=== PATIENT | female | born 1955 | race Hispanic/Latino ===

== ENCOUNTER 2023-04-04 15:11 | Emergency (ER) | payer MEDICARE ==
--- OUTSIDE RECORDS SUMMARY | 2023-04-04 15:14 | XMS REPORT | Continuity of Care Document ---
:1955 Author Organization [facility] t Address [address] [place] [id number] Care Team Providers Name Role Phone Benedict Young Primary Care Physician Herman Tanner Attending Clinician [id number]_[place]_S Attending Clinician Unavailable Doctor Unassigned, [place] Attending Clinician Unavailable MICHAEL POTTER Attending Clinician Unavailable Michael Spencer Attending Clinician Melvi Camilo DO Attending Clinician GC_GCBZW_[place]_S Admitting Clinician Unavailable MICHAEL POTTER Admitting Clinician Unavailable Payers Payer Name Policy Type Policy Number Effective Date Expiration Date [facility] [id number] 2021 (MEDICARE 00:00:00 REPLACEMENT HMO) Problems Condition Condition Condition Status Onset Resolution Last Treating Co mments Source Name Details Category Date Date Treatment Clinician Date No known No known Disease Unive rs active active ity of problems problems [facility] Allergies, Adverse Reactions, Alerts Allergy Allergy Status Severity Reaction(s) Onset Inactive Treating Comm ents Source Name Type Date Date Clinician Tramadol Propensi Active Other - See Unable t o Univers ty to comments 4-11 sleep ity of adverse 00:00: [place] reaction 00 Medical s Branch TRAMADOL DRUG Active Other-Cmnt Univ ers INGREDI 4-11 ity of 00:00: [place] 00 Medical Branch Social History Social Habit Start Date Stop Date Quantity Comments Source Sexual orientation Univer [facility] Exposure to 2022-04-28 2022-05-08 Not sure [facility] SARS-CoV-2 (event) 00:00:00 16:15:00 [facility] Branch Sex Assigned At [birth year] [facility] 00:00:00 00:00:00 Medical Branch Smoking Status Start Date Stop Date Source [facility] Medications Ordered Filled Start Stop Current Ordering Indication Dosage Frequency Signature Comments Components Source Medication Medication Date Date Medication? Clinician (SIG) Name Name iopamidol 2021-06- No [id number] 75mL 75 mL, U nivers (ISOVUE 07-09 Intravenou ity o f 370-500 mL) 01:45: 01:45 s, ONCE, 1 [place] injection 00 :00 dose, On Medica l 75 mL Fri Branch 05/08/22 at 1945, Routine morpHINE (4 2021-06- No 4mg 4 mg, Slow Univers mg/mL) 07-09 IV Push, ity of injection 4 00:15: 00:13 [place]CE[place] 1 [place] mg 00 :[place] dose, On Medical [facility] Branch 05/08/22 at 1815, STAT ondansetron 2021-06- No 4mg 4 mg, Slow Univers (ZOFRAN 07-08 IV Push, ity of (PF)) 23:30: 00:13 ONCE, 1 [place] injection 4 00 :00 dose, On Medi dwight mg [facility] Branch 05/08/22 at 1730, LINDSAY cloNIDine 2021-06- No .1mg 0.1 mg, Univ ers (CATAPRES) 07-08 Oral, ity of tablet 0.1 22:45: 22:34 ONCE, 1 [place] as mg 00 :00 dose, On Medical Fri Branch 05/08/22 at 1645, STAT diazePAM 2021-06- No 5mg 5 mg, Univers (VALIUM) 07-08 Oral, ity of tablet 5 mg 22:30: 22:34 [place]CE[place] 1 [place] 00 :[place] dose, On Medical Fri Branch 11/25/22 at 1630, LINDSAY methocarbam 2021-06 Yes [id number] 1000mg Take 2 Univers oL 500 mg 1-25 tablets by ity of tablet 00:00: mouth 4 [place] 00 (four) Medical times Branch daily as needed for Pain (scale 4-6). naproxen 2021-06 Yes [id number] 500mg Take 1 Un eran (NAPROSYN) 1-25 tablet by ity of 500 mg 00:00: mouth in [place] tablet 00 the Medical morning Branch and 1 tablet in the evening. Take with meals. acetaminoph 2021-06 Yes [id number] 1{tbl} Take 1 Un eran en-codeine 1-25 tablet by ity of 300-30 mg 00:00: mouth [place] tablet 00 every 4 Medical (four) Branch hours as needed for Pain (scale 7-10). Indication s: acute pain methocarbam 2021-06 Yes [id number] 1000mg Take 2 Univers oL 500 mg 1-25 tablets by ity of tablet 00:00: mouth 4 [place] 00 (four) Medical times Branch daily as needed for Pain (scale 4-6). naproxen 2021-06 Yes [id number] 500mg Take 1 Un eran (NAPROSYN) 1-25 tablet by ity of 500 mg 00:00: mouth in [place] tablet 00 the Medical morning Branch and 1 tablet in the evening. Take with meals. acetaminoph 2021-06 Yes [id number] 1{tbl} Take 1 Un eran en-codeine 1-25 tablet by ity of 300-30 mg 00:00: mouth [place] tablet 00 every 4 Medical (four) Branch hours as needed for Pain (scale 7-10). Indication s: acute pain methocarbam 2021-06 Yes [id number] 1000mg Take 2 Univers oL 500 mg 1-25 tablets by ity of tablet 00:00: mouth 4 [place] 00 (four) Medical times Branch daily as needed for Pain (scale 4-6). naproxen 2021-06 Yes [id number] 500mg Take 1 Un eran (NAPROSYN) 1-25 tablet by ity of 500 mg 00:00: mouth in [place] tablet 00 the Medical morning Branch and 1 tablet in the evening. Take with meals. acetaminoph 2021-06 Yes [id number] 1{tbl} Take 1 Un eran en-codeine 1-25 tablet by ity of 300-30 mg 00:00: mouth [place] tablet 00 every 4 Medical (four) Branch hours as needed for Pain (scale 7-10). Indication s: acute pain losartan 2020-06 Yes 25mg 25 mg, Univers (COZAAR) 08-10 Oral, ity of tablet 25 15:00: DAILY, [place] mg 00 First dose Medical on Mon Branch 06/09/21 at 0900, Until Discontinu ed, Routine diazePAM 2020-06- No 5mg 5 mg, Slow Un eran (VALIUM) 08-10 IV Push, ity of injection 5 00:45: 23:46 ONCE, 1 [place] mg 00 :00 dose, On Medical [place] Branch 06/08/21 at 1845, STAT NaCl 0.9% 2020-06- No 500mL at 999 Univ ers (NS) bolus 08-09 mL/hr, 500 it y of infusion 22:45: 22:30 mL, IV [place] 500 mL 00 :00 Infusion, Medical ONCE, 1 Branch dose, On [place] 06/08/21 at 1645, STAT meclizine 2020-06- No 25mg 25 mg, Unive rs (TRAVEL-EAS 08-09 Oral, ity of E 22:45: 21:54 ONCE, 1 [place] (MECLIZINE) 00 :00 dose, On Medi dwight ) tablet 25 [place] Branch mg 06/08/21 at 1645, LINDSAY ondansetron 2020-06- No 4mg 4 mg, Slow Univers (ZOFRAN 08-09 IV Push, ity of (PF)) 22:45: 21:53 ONCE, 1 [place] injection 4 00 :00 dose, On Medi wdight mg [place] Branch 06/08/21 at 1645, LINDSAY ondansetron 2020-06 Yes [id number] 4mg Take 1 Univers (ZOFRAN 2-26 tablet by ity of ODT) 4 mg 00:00: mouth [place] disintegrat 00 every 8 Medic al ing tablet (eight) Branch hours as needed for Nausea and Vomiting (N/V). meclizine 2020-06 Yes [id number] 25mg Take 1 Un eran 25 mg -26 tablet by ity of tablet 00:00: mouth [place] 00 every 6 Medical (six) Branch hours. ciprofloxac 2020-06 Yes [id number] 250mg Take 1 Univers in HCl 250 2-26 tablet by ity of mg tablet 00:00: mouth 2 [place] 00 (two) Medical times Branch daily. ondansetron 2020-06 Yes [id number] 4mg Take 1 Univers (ZOFRAN 2-26 tablet by ity of ODT) 4 mg 00:00: mouth [place] disintegrat 00 every 8 Medic al ing tablet (eight) Branch hours as needed for Nausea and Vomiting (N/V). meclizine 2020-06 Yes [id number] 25mg Take 1 Un eran 25 mg 2-26 tablet by ity of tablet 00:00: mouth [place] 00 every 6 Medical (six) Branch hours. ciprofloxac 2020-06 Yes [id number] 250mg Take 1 Univers in HCl 250 2-26 tablet by ity of mg tablet 00:00: mouth 2 [place] 00 (two) Medical times Branch daily. ondansetron 2020-06 Yes [id number] 4mg Take 1 Univers (ZOFRAN 2-26 tablet by ity of ODT) 4 mg 00:00: mouth [place] disintegrat 00 every 8 Medic al ing tablet (eight) Branch hours as needed for Nausea and Vomiting (N/V). meclizine 2020-06 Yes [id number] 25mg Take 1 Un eran 25 mg 2-26 tablet by ity of tablet 00:00: mouth [place] 00 every 6 Medical (six) Branch hours. ciprofloxac 2020-06 Yes [id number] 250mg Take 1 Univers in HCl 250 2-26 tablet by ity of mg tablet 00:00: mouth 2 [place] 00 (two) Medical times Branch daily. ondansetron 2020-06 Yes [id number] 4mg Take 1 Univers (ZOFRAN 2-26 tablet by ity of ODT) 4 mg 00:00: mouth [place] disintegrat 00 every 8 Medic al ing tablet (eight) Branch hours as needed for Nausea and Vomiting (N/V). meclizine 2020-06 Yes [id number] 25mg Take 1 Un eran 25 mg 2-26 tablet by ity of tablet 00:00: mouth [place] 00 every 6 Medical (six) Branch hours. ciprofloxac 2020-06 Yes [id number] 250mg Take 1 Univers in HCl 250 2-26 tablet by ity of mg tablet 00:00: mouth 2 [place] 00 (two) Medical times Branch daily. acetaminoph Yes 1{tbl} Take 1 Un eran en-codeine 7-03 tablet by ity of (TYLENOL-CO 00:00: mouth [place] DEINE #3) 00 every 6 Medical 300-30 mg (six) Branch tablet hours as needed for Pain (scale 4-6) (for cough). acetaminoph 2021- No 1{tbl} Take 1 U nivers en-codeine 7-03 11-25 tablet by ity of (TYLENOL-CO 00:00: 00:00 [place] DEINE #3) 00 :00 every 6 Medical 300-30 mg (six) Branch tablet hours as needed for Pain (scale 4-6) (for cough). Vital Signs Vital Name Observation Time Observation Value Comments Source Systolic blood 2022-05-09 02:00:00 126 [facility] Diastolic blood 2022-05-09 02:00:00 71 [facility]Hg[facility] Heart rate 2022-05-09 02:00:00 77 /min [facility] Respiratory rate 2022-05-09 02:00:00 17 /min [facility] Oxygen saturation in 2022-05-09 02:00:00 98 /min [facility] Arterial blood by [facility] Pulse oximetry Branch Body temperature 2022-05-08 22:16:00 36.11 Beatriz [facility] Body height 2022-05-08 22:16:00 162.6 cm [facility] Body weight 2022-05-08 22:16:00 79.379 kg [facility] BMI 2022-05-08 22:16:00 30.04 kg/m2 [facility] Body temperature 2021-06-09 00:55:00 37.06 Beatriz [facility] Systolic blood 2021-06-09 00:30:00 179 mm[facility]Hg] [facility] 2021-06-09 00:30:00 85 mm[facility]Hg] [facility] Heart rate 2021-06-09 00:30:00 77 /min [facility] Respiratory rate 2021-06-09 00:30:00 16 /min Univ [facility] Oxygen saturation in 2021-06-09 00:30:00 97 /min [facility] Arterial blood by [facility] Pulse oximetry Branch Body weight 2021-06-08 20:57:00 79.379 kg [facility] BMI 2021-06-08 20:57:00 30.02 kg/m2 [facility] Procedures Procedure Date / Time Performing Clinician Source Performed REFERRAL- 2023-03-01 05:01:00 Doctor Unassigned, No [facility] REQUEST/RESPONSE Name [facility] CT ANGIOGRAM NECK 2022-05-09 00:48:42 Michael Potter [facility] COMP. METABOLIC PANEL 2022-05-09 00:11:00 Michael Potter [facility] ([id number]) [facility] CBC WITH DIFF 2022-05-09 00:11:00 Michael Potter [facility] CONSENT/REFUSAL FOR 2022-05-08 22:04:46 Doctor Unassigned, No [facility] DIAGNOSIS AND TREATMENT Name [facility] HB ECG ROUTINE & RHYTHM 2021-06-08 21:58:06 Michael Potter [facility] [place] XR CHEST 1 VW 2021-06-08 21:56:39 Michael Potter [facility] TROPONIN I 2021-06-08 21:49:00 Michael Potter [facility] COMP. METABOLIC PANEL 2021-06-08 21:49:00 Michael Potter [facility] ([id number]) [facility] CBC WITH DIFF 2021-06-08 21:49:00 Michael Potter [facility] PROTHROMBIN TIME / INR 2021-06-08 21:49:00 Michael Potter [facility] ACTIVATED PARTIAL 2021-06-08 21:49:00 Michael Potter [facility] THRMPLAS [facility] URINALYSIS 2021-06-08 21:49:00 Michael Potter [place] [facility] N-TERMINAL PRO-BNP 2021-06-08 21:49:00 [facility] COVID-19 (ID NOW RAPID 2021-06-08 21:49:00 Michael Potter [facility] TESTING) [facility] NOTICE OF PRIVACY 2021-06-08 20:51:36 Doctor Unassigned, No Univ [facility] PRACTICES Name [facility] Branch CONSENT/REFUSAL FOR 2021-06-08 20:50:49 [facility] Name [facility] Encounters Start End Encounter Admission Attending Care Care Encounter Source Date/Time Date/Time Type Type Clinicians Facility Department ID 2023-03-03 2023-03-03 Letter GUNNAR Tanner [id number] Univers 00:00:00 00:00:00 (Out) Herman JAMA [id number] ity [facility] 4.2.7.2.686 [place] as [id number] [facility] 043 Branch 2023-03-01 2023-03-01 Outpatient GC_GCBZW_Ka PRIV PRIV [id number] [facility] 00:00:00 00:00:00 dicka_S [id number] Medic al 2023-03-01 2023-03-01 Orders Doctor MAHER [id number] Univers 00:00:00 00:00:00 Only UnassWILEY byers [id number] ity of [place] [facility] 4.2.7.2.686 [place] as [id number] [facility] 009 Branch 2022-05-08 2022-05-08 Emergency X [facility] ERT [id number] Univers 16:17:00 20:20:00 MICHAEL liu [facility] 2022-05-08 2022-05-08 Emergency Tariq [facility] [id number] Univers 16:17:00 20:20:00 Michael RODRIGUEZ 350.1.13.10 i ty [facility] 4.2.7.2.686 [facility] [id number] [address] 2021-12-26 2021-12-26 Outpatient [facility] [id number] [facility] 03:07:00 03:07:00 0715 Medica l Group 2021-12-26 2021-12-26 Outpatient [facility] [id number] [facility] 00:00:00 00:00:00 0506 Medica l Group 2021-06-08 2021-06-08 Emergency Melvi Camilo [facility] [id number] Univers 15:00:00 18:58:00 [facility] 350.1.13.10 [facility] 4.2.7.2.686 [facility] [id number] [address] 2021-06-08 2021-06-08 Emergency X JELENA POTTER ERT [id number] Univers 15:00:00 18:58:00 MICHAEL liu [facility] 2021-05-16 2021-05-16 Outpatient [facility] [id number] [facility] 08:01:00 08:01:00 1203 [place] [facility] Results Test Description Test Time Test Comments Results Result Comments Source CBC WITH DIFF 2022-05-09 00:21:48 Test Item Value Reference Range Interpretation Comme nts WBC (test code = 6690-2) See_Comment H [A utomated message] The system which ge nerated this result transmit ching reference range: 4.30 - 1 1.10 10*3/?L. The reference r yon was not used to interpr et this result as normal/abnor mal. RBC (test code = 789-8) See_Comment [Au tomated message] The system which ge nerated this result transmit ching reference range: 3.93 - 5 .25 10*6/?L. The reference r yon was not used to interpr et this result as normal/abnor mal. HGB (test code = 718-7) 13.1 g/dL 11.6-15.0 HCT (test code = 4544-3) 38.7 % 35.7-45.2 MCV (test code = 787-2) 86.2 fL 80.6-95.5 MCH (test code = 785-6) 29.2 pg 25.9-32.8 MCHC (test code = 786-4) 33.9 g/dL 31.6-35.1 RDW-SD (test code = 76084-1) 39.6 fL 39.0-49.9 RDW-CV (test code = 788-0) 12.9 % 12.0-15.5 PLT (test code = 777-3) See_Comment [Au tomated message] The system which ge nerated this result transmit ching reference range: 166 - 35 8 10*3/?L. The reference range was not used to interpret th is result as normal/abnormal . MPV (test code = 39151-0) 9.8 fL 9.5-12.9 NRBC/100 WBC (test code = See_Comment [ Automated message] The [id number]) system which ge nerated this result transmit ching reference range: 0.0 - 10 .0 /100 WBCs. The reference r yon was not used to interpr et this result as normal/abnor mal. NRBC x10^3 (test code = See_Comment [Au tomated message] The 4354204627) system which ge nerated this result transmit ching reference range: 10*3/?L. The reference range was not u sed to interpret this result as normal/abnormal . GRAN MAT (NEUT) % (test code 73.7 % = 770-8) IMM GRAN % (test code = 0.50 % 4681122347) LYMPH % (test code = 736-9) 18.3 % MONO % (test code = 5905-5) 6.6 % EOS % (test code = 713-8) 0.5 % BASO % (test code = 706-2) 0.4 % GRAN MAT x10^3(ANC) (test 11.56 10*3/uL 1.88-7.09 H code = 7993190838) IMM GRAN x10^3 (test code = 0.08 10*3/uL 0.00-0.06 H 3030521860) LYMPH x10^3 (test code = 2.88 10*3/uL 1.32-3.29 731-0) MONO x10^3 (test code = 1.03 10*3/uL 0.33-0.92 H 742-7) EOS x10^3 (test code = 0.08 10*3/uL 0.03-0.39 711-2) BASO x10^3 (test code = 0.07 10*3/uL 0.01-0.07 704-7) Lab Interpretation (test Abnormal code = 83207-9) [facility]. METABOLIC PANEL ([id number])2021-06-08 22:48:31 Test Item Value Reference Range Interpretation Comments NA (test code = 138 mmol/L 135-145 3180166782) K (test code = 3.5 mmol/L 3.5-5.0 5311257824) CL (test code = 104 mmol/L 98-108 9398397360) CO2 TOTAL (test code = 25 mmol/L 23-31 1031295013) AGAP (test code = 2-16 8922938675) BUN (test code = 13 mg/dL 7-23 7327208010) GLUCOSE (test code = 151 mg/dL 70-110 H 7330327035) CREATININE (test code = 0.47 mg/dL 0.50-1.04 L 8918239120) TOTAL BILI (test code = 0.5 mg/dL 0.1-1.1 8618060313) CALCIUM (test code = 8.9 mg/dL 8.6-10.6 2312668462) T PROTEIN (test code = 8.2 g/dL 6.3-8.2 6609016964) ALBUMIN (test code = 4.5 g/dL 3.5-5.0 8242782223) ALK PHOS (test code = 123 U/L 34-122 H 8663209852) ALTv (test code = 19 U/L 5-35 1742-6) AST(SGOT) (test code = 31 U/L 13-40 2937316308) eGFR (test code = mL/min/1.73m2 2341222076) KAYLEE (test code = KAYLEE) Association of Glomerular Filtration Rate (GFR) and Staging of Kidney Disease* + --+ --+ ------+| GFR (mL/min/1.73 m2) ?| With Kidney Damage ?| ?Without Kidney Damage+ --------+ --------+ +| ?>90 ?| ?Stage one ?| ? Normal ?+ ---+ ---+ -------+| ?60-89 ?| ?Stage two ?| ? Decreased GFR ? + --+ --+ ------+| ?30-59 ?| ?Stage three ?| ? Stage three ? + --+ --+ ------+| ?15-29 ?| ?Stage four ? | ? Stage four ?+ ---+ ---+ -------+| ?<15 (or dialysis) ? ?| ?Stage five ? | ? Stage five ?+ ---+ ---+ -------+ *Each stage assumes the associated GFR level has been in effect for at least three months. ?Stages 1 to 5, with or without kidney disease, indicate chronic kidney disease. Notes: Determination of stages one and two (with eGFR >59mL/min/1.73 m2) requires estimation of kidney damage for at least three months as defined by structural or functional abnormalities of the kidney, manifested by either:Pathological abnormalities or Markers of kidney damage (including abnormalities in the composition of the blood or urine or abnormalities in imaging tests). Lab Interpretation Abnormal (test code = 98367-2) [facility] [id number] 22:29:08 Test Item Value Reference Interpretation Comments Range TROPONIN I (test 0.005 ng/mL See_Comment [Automated code = 8744362492) message] The system which generated this result transmitted reference range : <=0.034. The reference range was not used to interpret this result as normal/abnormal . KAYLEE (test code = Reference (Normal) KAYLEE) Range (defined by the 99th percentile reference limit): <= 0.034 ng/mL Note: Cardiac troponin begins to rise 3-4 hours after the onset of ischemia. Repeat in 4-6 hours if the sample was drawn within 3-4 hours of the onset of the symptom and found normal. Diagnosis of myocardial injury is made with acute changes in cTn concentrations with at least one serial sample above the 99th percentile upper reference limit (URL), taken together with the patient's clinical presentation. Biotin has been reported to cause a negative bias, interpret results relative to patient's use of biotin. Lab Interpretation Normal (test code = 79238-5) [facility] [id number] 22:26:07 Test Item Value Reference Range Interpretation Comments NT-proBNP (test code 177 pg/mL See_Comment H [Autom ated = 3288514580) message] The system which generated this result transmitted reference range : <=125. The reference range was not used to interpret this result as normal/abnormal . KAYLEE (test code = KAYLEE) Biotin has been reported to cause a negative bias, interpret results relative to patient's use of biotin. Lab Interpretation Abnormal (test code = 86366-9) [facility] THRMPLAS [id number] 22:16:05 Test Item Value Reference Range Interpretation Comments APTT Patient (test See_Comment [Automat ed code = 3173-2) message] The system which generated this result transmitted reference range : 23 - 38 Seconds . The reference range was not used to interpr et this result as normal/abnormal . KAYLEE (test code = KAYLEE) The [facility] patient population mean normal value for aPTT is 30 seconds. Lab Interpretation Normal (test code = 27735-4) [facility] / [id number] 22:14:04 Test Item Value Reference Range Interpretation Comments PROTIME PATIENT (test See_Comment [Auto mated message] code = 5964-2) The system wh ich generated this result transmitted ref erence range: 12.0 - 1 4.7 Seconds. The re ference range was not u sed to interpret this result as normal/abnor mal. INR (test code = 6301-6) Nor mal INR <1.1; Warfarin Therap eutic range 2.0 to 3. 0 or 2.5 to 3.5, dep ending upon the indica tions. Lab Interpretation (test Normal code = 02586-7) [facility] WITH [id number] 22:06:47 Test Item Value Reference Range Interpretation Comments WBC (test code = See_Comment H [Automated 6590-2) message] The system which generated this result transmit ching reference range : 4.30 - 11.10 10*3/?L. The reference range was not used to interpret this result as normal/abnormal . RBC (test code = See_Comment [Automated 519-8) message] The system which generated this result transmit ching reference range : 3.93 - 5.25 10*6/?L. The reference range was not used to interpret this result as normal/abnormal . HGB (test code = 13.5 g/dL 11.6-15.0 718-7) HCT (test code = 39.6 % 35.7-45.2 4544-3) MCV (test code = 85.7 fL 80.6-95.5 787-2) MCH (test code = 29.2 pg 25.9-32.8 785-6) MCHC (test code = 34.1 g/dL 31.6-35.1 786-4) RDW-SD (test code = 38.0 fL 39.0-49.9 L 16376-6) RDW-CV (test code = 12.1 % 12.0-15.5 788-0) PLT (test code = See_Comment [Automated 777-3) message] The system which generated this result transmit ching reference range : 166 - 358 10*3/ ?L. The reference range was not u sed to interpret th is result as normal/abnormal . MPV (test code = 9.8 fL 9.5-12.9 16426-4) NRBC/100 WBC (test See_Comment [Automat ed code = 0668018363) message] The system which generated this result transmit ching reference range : 0.0 - 10.0 /100 WBCs. The reference range was not used to interpret this result as normal/abnormal . NRBC x10^3 (test code <0.01 See_Comment [Auto mated = 6337020061) message] The system which generated this result transmit ching reference range : 10*3/?L. The reference range was not used to interpret this result as normal/abnormal . GRAN MAT (NEUT) % 83.0 % (test code = 770-8) IMM GRAN % (test code 0.70 % = 7350264732) LYMPH % (test code = 10.5 % 736-9) MONO % (test code = 5.2 % 5905-5) EOS % (test code = 0.3 % 713-8) BASO % (test code = 0.3 % 706-2) GRAN MAT x10^3(ANC) 14.75 10*3/uL 1.88-7.09 H (test code = 3958067896) IMM GRAN x10^3 (test 0.13 10*3/uL 0.00-0.06 H code = 0522231796) LYMPH x10^3 (test code 1.86 10*3/uL 1.32-3.29 = 731-0) MONO x10^3 (test code 0.92 10*3/uL 0.33-0.92 = 742-7) EOS x10^3 (test code = 0.05 10*3/uL 0.03-0.39 711-2) BASO x10^3 (test code 0.05 10*3/uL 0.01-0.07 = 704-7) Lab Interpretation Abnormal (test code = 66728-2) [facility]"
[2023-04-04] MEDS ORDERED: LOSARTAN POTASSIUM 50 MG TABLET ONE (15:35)
--- NOTE | 2023-04-04 16:29 | RAD REPORT ---
EXAM DESCRIPTION: RAD - Chest Single View - 04/04/2023 3:52 pm CLINICAL HISTORY: TRAUMA COMPARISON: No comparisons FINDINGS: Lines: None. Lungs: No evidence of edema or pneumonia. Pleural: No significant pleural effusions or pneumothorax. Cardiac: The heart size is within normal limits. Mediastinum: Within normal limits. Bones: No acute fractures. Other: None IMPRESSION: No acute cardiopulmonary disease.
--- NOTE | 2023-04-04 16:30 | RAD REPORT ---
EXAM DESCRIPTION: RAD - Ribs Left - 04/04/2023 3:52 pm CLINICAL HISTORY: SMASH INJURY COMPARISON: Chest Single View dated 04/04/2023 FINDINGS/IMPRESSION: No displaced left-sided rib fractures identified. No pneumothorax. Nondisplaced rib fractures may not be apparent on radiography until healing begins.
--- NOTE | 2023-04-04 16:30 | RAD REPORT ---
EXAM DESCRIPTION: RAD - Knee Left 3 View - 04/04/2023 3:52 pm CLINICAL HISTORY: SMASH INJURY COMPARISON: No comparisons FINDINGS/IMPRESSION: No acute fracture. No malalignment. Mild medial compartment narrowing and spurr ing. Mild patellofemoral compartment spurring.
--- NOTE | 2023-04-04 16:35 | EDPHYS ---
Physician Documentation [facility] Name: Tiffany Draper Age: 67 yrs Sex: Female : 1955 Arrival Date: 04/04/2023 Time: 15:11 Bed IW1 Private MD: Herman Tanner E ED Physician Moe Vazquez HPI: 04/04 15:42 This 67 yrs old Female presents to ER via Ambulatory with complaints of Fall snw Injury, rib pain. 15:42 Details of fall: The patient fell from an upright position, while standing. Onset: The snw symptoms/episode began/occurred suddenly, last night. Associated injuries: The patient sustained left ribs and left knee. Severity of symptoms: At their worst the symptoms were very mild. It is unknown whether or not the patient has had similar symptoms in the past. no head trauma, no LOC, tripped over parking concrete barrier, landed on left side, knee, no Loc. Historical: - Allergies: 15:19 No Known Allergies; ll1 - PMHx: 15:19 Hypertensive disorder; ll1 - PSHx: 15:19 section; ll1 - Immunization history:: Adult Immunizations up to date. - Social history:: Smoking status: Patient denies any tobacco usage or history of. ROS: 15:42 Constitutional: Negative for fever, chills, and weight loss, Eyes: Negative for injury, snw pain, redness, and discharge, ENT: Negative for injury, pain, and discharge, Neck: Negative for injury, pain, and swelling, Respiratory: Negative for shortness of breath, cough, wheezing, and pleuritic chest pain, Abdomen/GI: Negative for abdominal pain, nausea, vomiting, diarrhea, and constipation, Back: Negative for injury and pain, : Negative for injury, bleeding, discharge, and swelling, Skin: Negative for injury, rash, and discoloration, Neuro: Negative for headache, weakness, numbness, tingling, and seizure, Psych: Negative for depression, anxiety, suicide ideation, homicidal ideation, and hallucinations, 15:42 Cardiovascular: Positive for left lateral rib pain, tenderness on inspiration, 15:42 MS/extremity: Positive for injury or acute deformity, pain, of the left knee, Exam: 15:41 Head/Face: Normocephalic, atraumatic. Eyes: Pupils equal round and reactive to light, snw extra-ocular motions intact. Lids and lashes normal. Conjunctiva and sclera are non-icteric and not injected. Cornea within normal limits. Periorbital areas with no swelling, redness, or edema. ENT: Nares patent. No nasal discharge, no septal abnormalities noted. Tympanic membranes are normal and external auditory canals are clear. Oropharynx with no redness, swelling, or masses, exudates, or evidence of obstruction, uvula midline. Mucous membranes moist. Neck: Trachea midline, no thyromegaly or masses palpated, and no cervical lymphadenopathy. Supple, full range of motion without nuchal rigidity, or vertebral point tenderness. No Meningismus. Chest/axilla: Normal chest wall appearance and motion. Nontender with no deformity. No lesions are appreciated. Cardiovascular: Irregular rate and rhythm with a normal S1 and S2. No gallops, murmurs, or rubs. Normal PMI, no JVD. No pulse deficits. Respiratory: Lungs have equal breath sounds bilaterally, clear to auscultation and percussion. No rales, rhonchi or wheezes noted. No increased work of breathing, no retractions or nasal flaring. Abdomen/GI: Soft, non-tender, with normal bowel sounds. No distension or tympany. No guarding or rebound. No evidence of tenderness throughout. Back: No spinal tenderness. No costovertebral tenderness. Full range of motion. MS/ Extremity: Pulses equal, no cyanosis. Neurovascular intact. Full, normal range of motion. Neuro: Awake and alert, GCS 15, oriented to person, place, time, and situation. Cranial nerves II-XII grossly intact. Motor strength 5/5 in all extremities. Sensory grossly intact. Cerebellar exam normal. Normal gait. Psych: Awake, alert, with orientation to person, place and time. Behavior, mood, and affect are within normal limits. 15:41 Constitutional: The patient appears alert, awake, well nourished, called from vending area, pt eating Fritos 15:41 Skin: Appearance: normal except for affected area, injury, abrasion(s), very small abrasion noted, of the left knee, Vital Signs: 15:16 BP 190 / 109; Pulse 82; Resp 16; Temp 98.8; Pulse Ox 98% ; Height 5 ft. 4 in. ; Pain ll1 4/10; 15:16 Pain Scale: Adult ll1 MDM: 15:21 Patient medically screened. snw 15:47 Differential diagnosis: abrasion, contusion, fracture, strain. Data reviewed: vital snw signs, nurses notes. Counseling: I had a detailed discussion with the patient and/or guardian regarding the historical points, exam findings, and any diagnostic results supporting the discharge/admit diagnosis, the presence of at least one elevated blood pressure reading (>120/80) during this emergency department visit, pt did not take her Losartan today. Given Losartan in triage.. 04/04 15:23 Order name: Chest Single View XRAY; Complete Time: 16:32 snw 04/04 15:23 Order name: Ribs Left XRAY; Complete Time: 16:32 snw 04/04 15:23 Order name: Knee Left 3 View XRAY; Complete Time: 16:32 snw Administered Medications: 15:24 Drug: Losartan PO 50 mg PO once Route: PO; ll1 Disposition: 04/05 10:02 Co-signature as Attending Physician, Moe Vazquez MD I reviewed the patient's care rn provided by the Advanced Practice Provider and agree with the diagnosis and treatment plan. Disposition Summary: 04/04/23 16:34 Discharge Ordered Notes: Location: Home snw Condition: Stable snw Diagnosis - Fall on same level from slipping, tripping and stumbling with subsequent striking snw against object - Contusion of knee snw - Rib contusion snw Followup: snw - With: Emergency Department - When: As needed - Reason: Worsening of condition Followup: snw - With: Herman Tanner MD - When: 1 - 2 days - Reason: Recheck today's complaints, Continuance of care, Re-evaluation by your physician Discharge Instructions: - Discharge Summary Sheet snw - Contusion snw - Fall Prevention in the Home, Adult snw - Form - Blood Pressure Record Sheet snw - How to Take Your Blood Pressure snw Forms: - Medication Reconciliation Form snw - Thank You Letter snw - Antibiotic Education snw - Prescription Opioid Use snw - Patient Portal Instructions snw - Leadership Thank You Letter snw Prescriptions: - Tramadol 50 mg Oral Tablet - take 1 tablet ORAL route every 8 hours as needed; 12 tablet; Refills: 0, snw Product Selection Permitted Signatures: Dispatcher [employer] EDMS Julita Guerrero, HEEL BRUSHER-C HEEL BRUSHER-Csnw Moe Vazquez MD MD rn Lewis, Lynsay, RN RN ll1 Corrections: (The following items were deleted from the chart) 04/04 15:20 15:19 PSHx: hysterectomy; ll1 ll1 15:47 15:41 Head/Face: Normocephalic, atraumatic. Eyes: Pupils equal round and reactive to snw light, extra-ocular motions intact. Lids and lashes normal. Conjunctiva and sclera are non-icteric and not injected. Cornea within normal limits. Periorbital areas with no swelling, redness, or edema. ENT: Nares patent. No nasal discharge, no septal abnormalities noted. Tympanic membranes are normal and external auditory canals are clear. Oropharynx with no redness, swelling, or masses, exudates, or evidence of obstruction, uvula midline. Mucous membranes moist. Neck: Trachea midline, no thyromegaly or masses palpated, and no cervical lymphadenopathy. Supple, full range of motion without nuchal rigidity, or vertebral point tenderness. No Meningismus. Chest/axilla: Normal chest wall appearance and motion. Nontender with no deformity. No lesions are appreciated. Cardiovascular: Regular rate and rhythm with a normal S1 and S2. No gallops, murmurs, or rubs. Normal PMI, no JVD. No pulse deficits. Respiratory: Lungs have equal breath sounds bilaterally, clear to auscultation and percussion. No rales, rhonchi or wheezes noted. No increased work of breathing, no retractions or nasal flaring. Abdomen/GI: Soft, non-tender, with normal bowel sounds. No distension or tympany. No guarding or rebound. No evidence of tenderness throughout. Back: No spinal tenderness. No costovertebral tenderness. Full range of motion. MS/ Extremity: Pulses equal, no cyanosis. Neurovascular intact. Full, normal range of motion. Neuro: Awake and alert, GCS 15, oriented to person, place, time, and situation. Cranial nerves II-XII grossly intact. Motor strength 5/5 in all extremities. Sensory grossly intact. Cerebellar exam normal. Normal gait. Psych: Awake, alert, with orientation to person, place and time. Behavior, mood, and affect are within normal limits. snw
--- NOTE | 2023-04-04 16:35 | ER ---
Nurse's Notes [facility] Name: Tiffany Draper Age: 67 yrs Sex: Female : 1955 Arrival Date: 04/04/2023 Time: 15:11 Bed IW1 Private MD: Herman Tanner E Diagnosis: Fall on same level from slipping, tripping and stumbling with subsequent striking against object;Contusion of knee;Rib contusion Presentation: 04/04 15:16 Chief complaint: Patient states: Trip and fall last night at [employer] [place]. L ll1 sided rib/truck pain since. Abrasions L knee. No head injury or LOC. Coronavirus screen: Client denies travel out of the [place] in the last 14 days. At this time, the client does not indicate any symptoms associated with coronavirus-19. Ebola Screen: Patient denies travel to an Ebola-affected area in the 21 days before illness onset. Initial Sepsis Screen: Does the patient meet any 2 criteria? No. Patient's initial sepsis screen is negative. Does the patient have a suspected source of infection? Yes: Bone or joint infection. Risk Assessment: Do you want to hurt yourself or someone else? Patient reports no desire to harm self or others. Onset of symptoms was April 03, 2023. 15:16 Method Of Arrival: Ambulatory ll1 15:16 Acuity: ROMERO 3 ll1 Historical: - Allergies: 15:19 No Known Allergies; ll1 - PMHx: 15:19 Hypertensive disorder; ll1 - PSHx: 15:19 section; ll1 - Immunization history:: Adult Immunizations up to date. - Social history:: Smoking status: Patient denies any tobacco usage or history of. Vital Signs: 15:16 BP 190 / 109; Pulse 82; Resp 16; Temp 98.8; Pulse Ox 98% ; Height 5 ft. 4 in. ; Pain ll1 4/10; 15:16 Pain Scale: Adult ll1 ED Course: 15:12 Patient arrived in ED. am2 15:12 Herman Tanner MD is Private Physician. am2 15:19 Triage completed. ll1 15:20 Julita Guerrero FNP-C [facility]. snw 15:20 Moe Vazquez MD is Attending Physician. snw 15:20 Arm band placed on. ll1 15:53 Chest Single View XRAY In Process Unspecified. EDMS 15:53 Ribs Left XRAY In Process Unspecified. EDMS 15:53 Knee Left 3 View XRAY In Process Unspecified. EDMS 16:33 Herman Tanner MD is Referral Physician. snw Administered Medications: 15:24 Drug: Losartan PO 50 mg PO once Route: PO; ll1 Outcome: 16:34 Discharge ordered by . snw 17:51 Patient left the ED. hb Signatures: Dispatcher [employer] EDMS Julita Guerrero, COMPTOMETER OPERATOR-C COMPTOMETER OPERATOR-Csnw Destiny Plascencia RN RN Nuria Gallagher Lynsay, RN RN ll1 Corrections: (The following items were deleted from the chart) 15:20 15:19 PSHx: hysterectomy; ll1 ll1
== END 2023-04-04 17:51 | disposition home or self-care (01) ==
LOC: ER 15:11
DX: S80.02XA Contusion of left knee, initial encounter (principal); S20.212A Contusion of left front wall of thorax, initial encounter; W01.10XA Fall on same level from slipping, tripping and stumbling with subsequent striking against unspecified object, initial encounter; I10 Essential (primary) hypertension
CPT/HCPCS: 71045; 99282